=== PATIENT | female | born 1965 | race Two or more races ===

== ENCOUNTER 2018-12-02 13:52 | Emergency (ER) | payer SELFPAY ==
[~2018-12-02] VITALS: Ht 170.2 cm; Wt 84.8 kg
[2018-12-02 15:42] LABS: Basophils # (auto) 0.1 uL; Basophils % (auto) 0.5 % (0.0-2.0); Eosinophils # (auto) 0.2 uL; Hematocrit 50.9 % (36.0-46.0); Hemoglobin 17.4 g/dL (12.2-16.2); Lymphocytes % (auto) 25.7 % (10.0-50.0); Mean Corpuscular Hemoglobin 30.7 pg (28.0-32.0); Mean Corpuscular Hgb Conc. 34.2 g/dL (32.0-36.0); Mean Corpuscular Volume 89.9 fL (80.0-100.0); Monocytes # (auto) 1.1 uL; Monocytes % (auto) 7.1 % (0.0-12.0); Neutrophils # (auto) 10.4 uL; Neutrophils % (auto) 65.7 % (37.0-80.0); Nucleated Red Blood Cells % 0.3 %; Platelet Count (auto) 322 10^3/uL (140-450); Red Blood Cells 5.66 10^6/uL (4.0-5.20); Red Cell Distribution Width 14.1 % (11.8-14.3); White Blood Cell 15.8 10^3/uL (4.4-10.8)
[2018-12-02 15:53] LABS: Albumin 3.4 g/dL (3.4-5.0); Calcium 9.3 mg/dL (8.5-10.1); Potassium 3.8 mmol/L (3.5-5.1)
[2018-12-02 16:00] LABS: BUN/Creatinine Ratio 26.1; Bilirubin, Total 0.4 mg/dL (0.2-1.0); Total Protein 6.9 g/dL (6.4-8.2)
[2018-12-02 17:22] VITALS: BP 135/74
== END 2018-12-02 17:30 | disposition left against medical advice (07) ==
LOC: EDBD 13:52 → ER 13:56
DX: R00.2 Palpitations (principal); Z53.21 Procedure and treatment not carried out due to patient leaving prior to being seen by health care provider
CPT/HCPCS: 36415; 71045; 80053; 83735; 84484; 85025

== ENCOUNTER 2020-08-12 10:26 | Emergency (ER) | payer OTHER ==
[2020-08-12] VITALS (7 sets, daily range): BP systolic 78–108; BP diastolic 50–65
[~2020-08-12] VITALS: Ht 170.2 cm; Wt 95.3 kg
[2020-08-12] MEDS ORDERED: ADENOSINE 6 MG/2 ML INJ IV ONE (10:27)
[2020-08-12] MEDS ORDERED: LIDOCAINE HCL 100 MG/5ML (2%) SYRG INJ IV ONE (10:27)
[2020-08-12] MEDS ORDERED: EPINEPHrine HCL 1 MG/10 ML SYRG IV ONE (10:27)
[2020-08-12] MEDS ORDERED: SODIUM CHLORIDE 0.9% 500 ML IV ONE (11:00)
[2020-08-12 11:30] LABS: Platelet Count (auto) 31 10^3/uL (140-450); White Blood Cell 2.3 10^3/uL (4.4-10.8)
[2020-08-12 11:33] LABS: Mean Corpuscular Hgb Conc. 32.3 g/dL (32.0-36.0); Mean Corpuscular Volume 92.8 fL (80.0-100.0); Red Blood Cells 1.73 10^6/uL (4.0-5.20); Red Cell Distribution Width 14.1 % (11.8-14.3)
[2020-08-12 11:39] LABS: Hemoglobin 5.2 g/dL (12.2-16.2)
[2020-08-12 11:42] LABS: Band Neutrophils % (manual) 0; Basophils % (manual) 0 (0.0-2.0); Blast Cells 0; Metamyelocytes % 0; Myelocytes % 0; Promyelocytes % 0; Reactive Lymphocytes 0
[2020-08-12 11:52] LABS: INR 1.46 (0.9-1.15); Partial Thromboplastin Time 30.9 sec (23.0-31.2)
[2020-08-12 11:53] LABS: Albumin 2.3 g/dL (3.4-5.0); Anion Gap 12 (5-15); Blood Urea Nitrogen 33 mg/dL (7-18); Calcium 7.4 mg/dL (8.5-10.1); Carbon Dioxide 21 mmol/L (21-32); Chloride 110 mmol/L (98-107); Glucose 333 mg/dL (74-106); Potassium 4.7 mmol/L (3.5-5.1); Sodium 143 mmol/L (136-145)
[2020-08-12 12:02] LABS: Alanine Aminotransferase 45 U/L (13-56); Alkaline Phosphatase 72 U/L (45-117); Aspartate Aminotransferase 30 U/L (15-37); BUN/Creatinine Ratio 26.6; GFR African American 58 mL/min; GFR Non-African American 48 mL/min; Total Protein 4.2 g/dL (6.4-8.2)
[2020-08-12] MEDS: NOREPINEPHRINE 8 MG/250ML KIT 250 ML IV SCH ×3 (12:44→23:36)
[2020-08-12] MEDS ORDERED: HYDROmorphone HCL 2 MG/ML VL IV ONE (12:45)
[2020-08-12] MEDS ORDERED: SODIUM CHLORIDE 0.9% 1,000 ML IV ONE (12:45)
[2020-08-12] MEDS ORDERED: PROMETHAZINE HCL 25 MG/ML 1ML IV PRN (12:45)
--- NOTE | 2020-08-12 13:24 | NUR ---
Midline Placement: Patient educated on need for midline placement. All risks and benefits explained and all questions and concerns addresses prior to procedure. 4Fr 20cm midline inserted via left basilic vein using Ultrasound. Sterile technique utilized. Blood return obtained from the single lumen and flushed easily with NS using proper technique. Midline secured with saline lock; biodisc and occlusive dressing applied. Primary RN notified. Midline lot #[id number]. Internal length 20cm External length 0cm
[2020-08-12] MEDS ORDERED: HYDROcodone-ACET 7.5/325MG TAB PO ONE (13:30)
[2020-08-12 13:36] LABS: Magnesium 1.2 mg/dL (1.6-2.6)
[2020-08-12 14:38] LABS: Eosinophils % (manual) 1 (0-7); Lymphocytes % (manual) 78 (10.0-50.0); Monocytes % (manual) 4 (0-12)
[2020-08-12] MEDS ORDERED: VASOPRESSIN 50 UNITS in D5W 5% 247.5 ML IV SCH (15:15)
[2020-08-12] MEDS ORDERED: MIDAZOLAM HCL 1MG/1ML-2 ML VIAL ONE (15:38)
[2020-08-12] MEDS ORDERED: MIDAZOLAM DRIP 50 mg/50mL 50 ML IV ONE (15:38)
[2020-08-12] MEDS: MIDAZOLAM DRIP 50 mg/50mL 50 ML IV SCH ×2 (16:00→20:16)
[2020-08-12] MEDS ORDERED: SODIUM BICARBONATE 8.4 % INJ 50ML VIAL IV ONE ×2 (17:15→20:45)
[2020-08-12 18:39] LABS: Urine Bacteria NONE SEEN /hpf (None Seen); Urine Blood 3+ /uL (Negative); Urine Specific Gravity 1.019 (1.001-1.035); Urine WBC 6 /hpf (0 - 5); Urine WBC Clumps PRESENT /hpf (None Seen)
[2020-08-12 20:06] LABS: Mean Corpuscular Hemoglobin 30.7 pg (28.0-32.0); White Blood Cell 2.2 10^3/uL (4.4-10.8)
[2020-08-12 20:07] LABS: Hematocrit 24.7 % (36.0-46.0); Hemoglobin 8.1 g/dL (12.2-16.2); Mean Corpuscular Volume 93.1 fL (80.0-100.0); Platelet Count (auto) 68 10^3/uL (140-450); Red Blood Cells 2.65 10^6/uL (4.0-5.20); Red Cell Distribution Width 14.2 % (11.8-14.3)
[2020-08-12] MEDS ORDERED: fentaNYL Drip 2500mCg/250mlNS 250 ML IV SCH (20:15)
[2020-08-12 20:22] LABS: Band Neutrophils % (manual) 0; Basophils % (manual) 0 (0.0-2.0); Blast Cells 0; Eosinophils % (manual) 0 (0-7); Metamyelocytes % 0; Myelocytes % 0; Promyelocytes % 0; Reactive Lymphocytes 0
[2020-08-12 20:24] LABS: Lymphocytes % (manual) 82 (10.0-50.0); Monocytes % (manual) 6 (0-12)
[2020-08-12] MEDS ORDERED: SODIUM BICARBONATE 8.4% INJ 50ML SYRINGE ONE (20:56)
[2020-08-13] MEDS ORDERED: MIDAZOLAM DRIP 50 mg/50mL 50 ML IV ONE (00:42)
[2020-08-13] MEDS ORDERED: EPINEPHrine HCL 250 ML IV ONE (01:06)
[2020-08-13 01:24] VITALS: BP 69/29
== END 2020-08-13 01:48 | disposition short-term general hospital (02) ==
LOC: ER 10:26 → EDBD 10:26 → EDUNIT# 10:26 → ER 23:45
DX: D69.6 Thrombocytopenia, unspecified (principal); I95.9 Hypotension, unspecified; C34.90 Malignant neoplasm of unspecified part of unspecified bronchus or lung; E11.21 Type 2 diabetes mellitus with diabetic nephropathy; J90 Pleural effusion, not elsewhere classified; E83.42 Hypomagnesemia; E43 Unspecified severe protein-calorie malnutrition; R58 Hemorrhage, not elsewhere classified; Z79.01 Long term (current) use of anticoagulants; D64.9 Anemia, unspecified
CPT/HCPCS: 31500; 36415; 36430; 36600; 71045; 74176; 80053; 81001; 82805; 83690; 83735; 84443; 84484; 85007; 85027; 85610; 85730; 86850; 86900; 86901; 86920; 87070; 87205; 96361; 96365; 96375; 96376; 99291; J0153; J0171; J2250; J2550; J7060; P9016; P9035; 94002